=== PATIENT | male | born 1995 | race Native Hawaiian/Other Pacific Islander ===

== ENCOUNTER 2019-08-01 09:45 | Emergency (ER) | payer BC ==
[~2019-08-01] VITALS: Ht 175.3 cm; Wt 77.1 kg
[2019-08-01 09:55] VITALS: BP_SYST 149
[2019-08-01] MEDS ORDERED: BACITRACIN 1 GM OINT TP ONE ×2 (10:45→10:56)
[2019-08-01 10:51] VITALS: BP_SYST 149
== END 2019-08-01 10:53 | disposition home or self-care (01) ==
LOC: SED 09:45 → EDSEX 09:45 → SED 10:53
DX: L03.012 Cellulitis of left finger (principal); J45.909 Unspecified asthma, uncomplicated
CPT/HCPCS: 99283